=== PATIENT | male | born 1975 | race Caucasian/White ===

== ENCOUNTER 2017-08-08 14:04 | Emergency (ER) | payer SELFPAY ==
[~2017-08-08] VITALS: Ht 167.6 cm; Wt 119.4 kg
[~2017-08-08 14:04] MED LIST: ASPI81TA82 PO
[2017-08-08 14:05] VITALS: BP 160/103
[2017-08-08] MEDS ORDERED: IBUP-232 PO (14:28)
[2017-08-08] MEDS ORDERED: PENI500T PO (14:28)
[2017-08-08] MEDS ORDERED: TRAM50 PO (14:28)
--- NOTE | 2017-08-08 14:29 | PD ---
HPI Chief Complaint: Oral / Dental Pain or Problem Time Seen by Provider: 14:23 Travel History International Travel<30 days: No Contact w/Intl Traveler<30days: No Traveled to known affect area: No History of Present Illness HPI 41-year-old male complains of right-sided jaw pain and swelling. Patient states the symptoms started several days ago. Patient has intermittent dental pain recently. Patient states the pain got worse along with the swelling right sided jaw for the past few days. Patient denies any fever chills. Patient states the pain is sharp pain severe pain localized to right sided jaw. Patient denies any pain radiation. Patient denies any fever chills. On a scale of 1-10 the pain is a 10. PFSH Past Medical History Anxiety: No Depression: Yes Cancer: No Cardiovascular Problems: No Diminished Hearing: No Endocrine: No GERD: No Genitourinary: No Hiatal Hernia: No Immune Disorder: No Musculoskeletal: Yes Neurologic: No Psychiatric: Yes Reproductive: No Respiratory: No Immunizations Current: Yes Ulcer: No Tetanus Vaccination: Unknown Influenza Vaccination: Yes Past Surgical History Other Surgery: No Social History Alcohol Use: No Tobacco Use: Yes (1-1/2 packs per day) Substance Use: No Allergies-Medications (Allergen,Severity, Reaction): Coded Allergies: No Known Allergies (Unverified Adverse Reaction, Unknown, 08/08/17) Reported Meds & Prescriptions Reported Meds & Active Scripts Active Review of Systems General / Constitutional: No: Fever Eyes: No: Visual changes HENT: No: Headaches Cardiovascular: No: Chest Pain or Discomfort Respiratory: No: Shortness of Breath Gastrointestinal: No: Abdominal Pain Genitourinary: No: Dysuria Musculoskeletal: No: Pain Skin: No Rash Neurologic: No: Weakness Psychiatric: No: Depression Endocrine: No: Polydipsia Hematologic/Lymphatic: No: Easy Bruising Physical Exam Narrative GENERAL: Well-nourished, well-developed patient. SKIN: Focused skin assessment warm/dry. HEAD: Normocephalic. EYES: No scleral icterus. No injection or drainage. NECK: Supple, trachea midline. No JVD or lymphadenopathy. CARDIOVASCULAR: Regular rate and rhythm without murmurs, gallops, or rubs. RESPIRATORY: Breath sounds equal bilaterally. No accessory muscle use. GASTROINTESTINAL: Abdomen soft, non-tender, nondistended. MUSCULOSKELETAL: No cyanosis, or edema. BACK: Nontender without obvious deformity. No CVA tenderness. Patient has small area of soft tissue swelling tenderness right jaw area and submandibular area. No induration. Severe dental caries in the right lower gum area. Data Data Last Documented VS Vital Signs Date Time Temp Pulse Resp B/P (MAP) Pulse Ox O2 Delivery O2 Flow Rate FiO2 08/08/17 14:05 160/103 (122) Orders Orders Ketorolac Inj (Toradol Inj) (08/08/17 14:30) Penicillin V Potassium (Veetids) (08/08/17 14:30) MDM Medical Decision Making Medical Screen Exam Complete: Yes Emergency Medical Condition: Yes Differential Diagnosis Differential diagnosis including dental pain, dental abscess. Narrative Course 41-year-old male with pain swelling right side of the jaw. Toradol 60 mg IM. Pen-Vee K 500 mg by mouth. Diagnosis Primary Impression: Dental abscess Patient Instructions: General Instructions Additional Instructions: Take medications as directed. Follow-up with dentist or oral surgeon. Return if worse. Med/Other Pt SpecificInfo: Prescription(s) given Scripts Tramadol (Ultram) 50 Mg Tab 50 MG PO Q6H Y for PAIN, #12 TAB 0 Refills Prov: Garrison Celis MD 08/08/17 Ibuprofen (Ibuprofen) 600 Mg Tab 600 MG PO Q8HR Y for PAIN, #60 TAB 0 Refills Prov: Garrison Celis MD 08/08/17 Penicillin V Potassium (Penicillin V Potassium) 500 Mg Tab 500 MG PO QID for Infection, #40 TAB 0 Refills Prov: Garrison Celis MD 08/08/17 Disposition: 01 DISCHARGE HOME Condition: Stable Garrison Celis MD Aug 08, 2017 14:29
[2017-08-08] MEDS ORDERED: PENICILLIN V POTASSIUM 500 MG TAB PO ONE (14:30)
[2017-08-08] MEDS ORDERED: KETOROLAC TROMETHAMINE 60 MG/2 ML (IM) VIAL IM ONE (14:30)
== END 2017-08-08 14:40 | disposition home or self-care (01) ==
LOC: PHEFT 14:04
DX: K04.7 Periapical abscess without sinus (principal); F17.200 Nicotine dependence, unspecified, uncomplicated
CPT/HCPCS: 96372; 99284; J1885

== ENCOUNTER 2018-01-03 22:51 | Emergency (ER) | payer SELFPAY ==
[~2018-01-03] VITALS: Ht 165.1 cm; Wt 118.7 kg
[~2018-01-03 22:51] MED LIST changes: -ASPI81TA82 PO; +IBUP-232 PO; +PENI500T PO; +TRAM50 PO
[2018-01-03 23:07] VITALS: BP 141/91; PULSE 90; RESP 16; TEMP 97.9; O2SAT 97
[2018-01-03] MEDS ORDERED: IBUP-232 PO (23:49)
[2018-01-03] MEDS ORDERED: PERC5TAB12 PO (23:49)
[2018-01-03] MEDS ORDERED: CLIN300C5 PO (23:49)
--- NOTE | 2018-01-03 23:50 | PD ---
HPI Chief Complaint: Oral / Dental Pain or Problem Time Seen by Provider: 23:32 Travel History International Travel<30 days: No Contact w/Intl Traveler<30days: No Traveled to known affect area: No History of Present Illness HPI Patient is a 42-year-old male who presents the emergency room with his with complaints of tooth pain. Patient reports that he has been having chronic tooth pain for the past year, patient reports that he did follow-up with a dentist and was told that he would need to go to oral maxillofacial dentist to do work on his infected tooth. Patient reports that he could not afford the $ 1000 charge for this appointment, reports that he has been living with his chronic tooth pain since then. Patient reports that when he has these tooth pains, antibiotics do seem to help with his pain. Patient reports that for the past few days, he has had flareup of his tooth pain. Patient has called multiple oral maxillofacial surgeons -reports that no one will see him without medical insurance. Patient with no fever or chills, no other complaints at this time. PFSH Past Medical History Medical History: Denies Significant Hx Anxiety: No Depression: Yes Cancer: No Cardiovascular Problems: No Diminished Hearing: No Endocrine: No Gastrointestinal Disorders: Yes (abdominal pain) GERD: No Genitourinary: No Hiatal Hernia: No Immune Disorder: No Implanted Vascular Access Dvce: No Musculoskeletal: Yes Neurologic: No Psychiatric: Yes Reproductive: No Respiratory: No Immunizations Current: Yes Ulcer: No Tetanus Vaccination: Unknown Influenza Vaccination: Yes Past Surgical History Surgical History: No Previous Surgery Other Surgery: No Social History Alcohol Use: No Tobacco Use: Yes (1-1/2 packs per day) Substance Use: No Allergies-Medications (Allergen,Severity, Reaction): Coded Allergies: No Known Allergies (Unverified Adverse Reaction, Unknown, 01/03/18) Reported Meds & Prescriptions Reported Meds & Active Scripts Active Percocet (Oxycodone-Acetaminophen) 5-325 mg Tab 1 Tab PO Q6H PRN Clindamycin (Clindamycin HCl) 300 Mg Cap 300 Mg PO Q6H 10 Days Ibuprofen 600 Mg Tab 600 Mg PO Q6H PRN Review of Systems General / Constitutional: No: Fever Eyes: No: Visual changes HENT: Positive: Dental Difficulties, No: Headaches Cardiovascular: No: Chest Pain or Discomfort Respiratory: No: Shortness of Breath Gastrointestinal: No: Abdominal Pain Genitourinary: No: Dysuria Musculoskeletal: No: Pain Skin: No Rash Neurologic: No: Weakness Psychiatric: No: Depression Endocrine: No: Polydipsia Hematologic/Lymphatic: No: Easy Bruising Physical Exam Narrative GENERAL: Well-nourished, well-developed patient. SKIN: Focused skin assessment warm/dry. HEAD: Normocephalic. EYES: No scleral icterus. No injection or drainage. MOUTH: patient with poor dentition and cracked tooth on bottom left molar, no cervical adenopathy, no facial swelling NECK: Supple, trachea midline. No JVD or lymphadenopathy. CARDIOVASCULAR: Regular rate and rhythm without murmurs, gallops, or rubs. RESPIRATORY: Breath sounds equal bilaterally. No accessory muscle use. GASTROINTESTINAL: Abdomen soft, non-tender, nondistended. MUSCULOSKELETAL: No cyanosis, or edema. BACK: Nontender without obvious deformity. No CVA tenderness. Data Data Last Documented VS Vital Signs Date Time Temp Pulse Resp B/P (MAP) Pulse Ox O2 Delivery O2 Flow Rate FiO2 01/03/18 23:07 97.9 90 16 141/91 (108) 97 Orders Orders Clindamycin (Cleocin) (01/04/18 00:00) Oxycodone-Acetamin 5-325 Mg (Percocet (01/04/18 00:00) Ibuprofen (Motrin) (01/04/18 00:00) MDM Medical Decision Making Medical Screen Exam Complete: Yes Emergency Medical Condition: Yes Medical Record Reviewed: Yes Interpretation(s) Vital Signs Date Time Temp Pulse Resp B/P (MAP) Pulse Ox O2 Delivery O2 Flow Rate FiO2 01/03/18 23:07 97.9 90 16 141/91 (108) 97 Differential Diagnosis Dental abscess versus dental caries Narrative Course Patient with known dental abscess which was diagnosed 1 year ago but has not followed up with [facility] as instructed by dentist. I did give referral to oral surgeons. Patient understands importance of following up with [facility] to have tooth extracted. Plan to start patient on antibiotics - understands need to eat plenty of yogurt with antibiotics to prevent c.diff. Signs and symptoms of when to return to the ER was reviewed with patient in detail. Diagnosis Primary Impression: Pain, dental Referrals: Florentin Henry DMD Patient Instructions: Narcotic given in the ED, General Instructions Additional Instructions: Please take all antibiotics as prescribed Please eat yogurt with your antibiotics Please follow-up with a dentist as soon as possible Do not drive or operate heavy machinery while taking narcotic pain medications. Med/Other Pt SpecificInfo: Prescription(s) given Scripts Oxycodone-Acetaminophen (Percocet) 5-325 mg Tab 1 TAB PO Q6H Y for PAIN, #10 TAB 0 Refills Prov: Dee Dee Cat DO 01/03/18 Clindamycin (Clindamycin) 300 Mg Cap 300 MG PO Q6H for Infection for 10 Days, #40 CAP 0 Refills Prov: Dee Dee Cat DO 01/03/18 Ibuprofen (Ibuprofen) 600 Mg Tab 600 MG PO Q6H Y for Pain/Inflammation, #40 TAB 0 Refills Prov: Dee Dee Cat DO 01/03/18 Disposition: 01 DISCHARGE HOME Condition: Stable Dee Dee Cat DO Jan 03, 2018 23:50
[2018-01-04] MEDS ORDERED: CLINDAMYCIN 150 MG CAP PO ONE
[2018-01-04] MEDS ORDERED: IBUPROFEN 600 MG TAB PO ONE
[2018-01-04] MEDS ORDERED: oxyCODONE/ACETAMINOPHEN 5 MG/325 MG TAB PO ONE
== END 2018-01-04 00:10 | disposition home or self-care (01) ==
LOC: PHED 22:51
DX: K08.89 Other specified disorders of teeth and supporting structures (principal); F32.9 Major depressive disorder, single episode, unspecified; F17.200 Nicotine dependence, unspecified, uncomplicated
CPT/HCPCS: 99283